=== PATIENT | female | born 1990 | race Two or more races ===

== ENCOUNTER 2016-11-22 05:01 | Day surgery (SDC) | payer OTHER ==
[~2016-11-22] VITALS: Ht 157.5 cm; Wt 65.0 kg
[2016-11-22] MEDS ORDERED: LACTATED RINGERS 1,000 ML IV SCH (05:38)
[2016-11-22 05:52] VITALS: BP 103/63
[2016-11-22 05:56] LABS: HCG UR OBC PASS
[2016-11-22] MEDS ORDERED: NEOSPORIN OINT, 15GM ONE (06:46)
[2016-11-22] MEDS ORDERED: BUPIVACAINE/PF-EPI 0.5% 1:200K ONE (06:46)
[2016-11-22] MEDS ORDERED: MIDAZOLAM 1 MG/ML, 2ML ONE (06:48)
[2016-11-22] MEDS ORDERED: FENTANYL PF 250 MCG/5ML ONE (06:48)
[2016-11-22] MEDS ORDERED: CEFAZOLIN 1,000 MG ONE (06:55)
[2016-11-22] MEDS ORDERED: PROPOFOL 10 MG/ML, 20ML ONE (06:55)
[2016-11-22] MEDS ORDERED: KETOROLAC 30 MG/1 ML ONE (06:55)
[2016-11-22] MEDS ORDERED: ONDANSETRON 2MG/ML, 2ML ONE (06:55)
[2016-11-22] MEDS ORDERED: ONDANSETRON 2MG/ML, 2ML IVPush PRN (07:30)
[2016-11-22] MEDS ORDERED: MIDAZOLAM 1 MG/ML, 2ML IV PRN (07:30)
[2016-11-22] MEDS ORDERED: EPHEDRINE 50 MG/ML, 1ML IVPush PRN (07:30)
[2016-11-22] MEDS ORDERED: METOPROLOL 1 MG/ML, 5ML IV PRN (07:30)
[2016-11-22] MEDS ORDERED: MEPERIDINE/PF 25MG/0.5ML IVPush PRN (07:30)
[2016-11-22] MEDS ORDERED: METOCLOPRAMIDE 5 MG/ML, 2ML IV PRN (07:30)
[2016-11-22] MEDS ORDERED: ACETAMINOPHEN 325 MG TABLET PO PRN (07:30)
[2016-11-22] MEDS ORDERED: LABETALOL 5MG/ML, 20ML IV PRN (07:30)
[2016-11-22] MEDS ORDERED: HYDROmorphone 1 MG/ML, 1ML IV PRN (07:30)
[2016-11-22] MEDS ORDERED: hydrALAzine 20 MG/ML, 1ML IV PRN (07:30)
[2016-11-22] MEDS ORDERED: ALBUTEROL SULFATE 2.5 MG/3 ML NPPB PRN (07:30)
[2016-11-22] MEDS ORDERED: PROMETHAZINE 25 MG/ML, 1ML IV PRN (07:30)
[2016-11-22] MEDS ORDERED: FENTANYL PF 100 MCG/2ML ONE (07:59)
[2016-11-22] MEDS ORDERED: OXYcodone 5 MG/5 ML ORAL.SOL UDC ONE ×2 (07:59→08:27)
[2016-11-22] MEDS: FENTANYL PF 100 MCG/2ML IV PRN ×3 (08:00→08:20)
[2016-11-22] MEDS: OXYcodone 5 MG/5 ML ORAL.SOL UDC PO PRN ×2 (08:10→08:38)
[2016-11-22] MEDS ORDERED: MEPERIDINE/PF 25MG/0.5ML ONE (08:26)
== END 2016-11-22 09:30 | disposition home or self-care (01) ==
LOC: OR 05:01 → 4NOR 05:20 → OR 09:30
PROVIDERS: ATTEND Orthopaedic Surgery
DX: S42.022A Displaced fracture of shaft of left clavicle, initial encounter for closed fracture (principal); X58.XXXA Exposure to other specified factors, initial encounter; Y93.9 Activity, unspecified; Y92.9 Unspecified place or not applicable; Y99.9 Unspecified external cause status
CPT/HCPCS: 23515; 73000; 76000; 81025; C1713; J0690; J1885; J2250; J2405; J2704; J3010